=== PATIENT | male | born 1960 | race Caucasian/White ===

== ENCOUNTER 2020-03-16 07:07 | Outpatient (CLI) | payer OTHER, SELFPAY ==
[2020-03-16 08:41] LABS: Alanine Aminotransferase 26 U/L (4-50); Albumin Level 4.2 g/dL (3.5-5.1); Alkaline Phosphatase 74 U/L (38-126); Anion Gap 4 mmol/L (8-16); Aspartate Amino Transferase 25 U/L (17-59); Bilirubin,Total 0.6 mg/dL (0.2-1.3); Blood Urea Nitrogen 14 mg/dL (9-20); Calcium 9.2 mg/dL (8.4-10.2); Carbon Dioxide 29 mmol/L (22-30); Chloride 104 mmol/L (98-107); Cholesterol 163 mg/dL (0-200); Estimated Glomerular Filt Rate > 60; Glucose 123 mg/dL (75-110); HDL Direct 50 mg/dL; Potassium 4.8 mmol/L (3.4-5.0); Sodium 137 mmol/L (137-145); Triglycerides 142 mg/dL (<150)
[2020-03-16 08:52] LABS: LDL Cholesterol Direct 90 mg/dL
== END 2020-03-16 07:08 | disposition home or self-care (01) ==
PROVIDERS: PCP Emergency Medicine; Visit Provider Emergency Medicine
DX: E78.5 Hyperlipidemia, unspecified (principal); Z12.5 Encounter for screening for malignant neoplasm of prostate
CPT/HCPCS: 36415; 80053; 80061; 84153; G0103

== ENCOUNTER 2020-12-05 15:40 | Emergency (ER) | payer OTHER, SELFPAY ==
[2020-12-05 15:51] VITALS: BP 139/72; PULSE 67; RESP 16; TEMP 37.4; O2SAT 99
--- NOTE | 2020-12-05 16:09 | ED.URI ---
HPI - URI/Sore Throat General Chief Complaint: Wound/Laceration Stated Complaint: sore throat/swollen glands/knots on head/fatigue Time Seen by Provider: 12/05/20 16:09 Source: patient and RN notes reviewed Mode of arrival: ambulatory Limitations: no limitations History of Present Illness HPI Narrative: 60-year-old male presents with his girlfriend with complaints of a sore throat, nasal congestion, rhinorrhea and lesions to the back of his head. Patient states they all started approximately 5 days ago. Patient has not taken anything for his symptoms. States they were just getting annoying and he cannot wait 13 days to see his primary care provider. Girlfriend is requesting that we do labs, explained to her that we are a facility that we do not do labs any labs that need to be done will need to be done by primary care provider, she states that she is concerned for his chronic fatigue. Related Data Home Medications Medication Instructions Recorded Confirmed bupropion HCl 300 mg 24 hr tablet, 300 mg PO DAILY tablet 06/20/19 12/05/20 extended release sertraline 50 mg tablet 50 mg PO DAILY 06/20/19 12/05/20 Allergies Allergy/AdvReac Type Severity Reaction Status Date / Time No Known Allergies Allergy Unverified 12/05/20 15:52 Review of Systems Review of Systems: All systems reviewed & are unremarkable except as noted in HPI and below Constitutional: Constitutional: Reports no additional constitutional complaints, Denies chills and Denies fever(s) Eyes: Eyes: Reports no additional eye complaints, Denies change in vision and Denies photophobia ENT: Reports as per HPI, Reports nasal congestion and Reports sore throat Cardiovascular: Cardiovascular: Reports no additional cardiovascular complaints and Denies chest pain Respiratory: Respiratory: Reports no additional respiratory complaints, Denies cough and Denies dyspnea Gastrointestinal: Gastrointestinal: Reports no additional gastrointestinal complaints, Denies abdominal pain, Denies nausea and Denies vomiting Musculoskeletal: Musculoskeletal: Reports no additional musculoskeletal complaints, Denies back pain, Denies myalgias, Denies arthralgias, Denies joint swelling and Denies muscle cramps Integumentary/Breasts: Skin/Breast: Reports system reviewed and no additional complaints, except as docu and Denies rash Neurologic: Reports system reviewed and no additional complaints, except as documented, Denies vertigo, Denies dizziness, Denies syncope, Denies headache(s), Denies focal weakness and Denies numbness Psychiatric: Psychiatric: Reports no additional psychiatric complaints Endocrine: Endocrine: Reports no additional endocrine complaints, Denies fatigue and Denies polydipsia Allergic/Immunologic: Allergic/Immunologic: Reports no additional allergic/immunologic complaints [facility] Past Medical History Medical History (Updated 12/05/20 @ 16:23 by Sarah Kirby) HLD (hyperlipidemia) Family History Family History Sibling Patient's sister is in good health Father Acute myocardial infarction, Onset Age: 74 Patient's father is Social History Social History Smoking status: Never smoker Alcohol intake: current Exam Const: General: healthy appearing, no acute distress and alert Nutritional Appearance: well nourished Orientation/consciousness: patient oriented x3 Limitations: no limitations HENMT: Head: normal to inspection Ears: external ears normal, mastoids normal, no periauricular adenopathy, external ear abnormal and TM abnormal wth effusion serous bilateral and with fluid behind the TM bilateral; not erythematous General nose exam: Normal external nose present, Abnormal mucous membranes and turbinates present boggy; not erythematous and Nasal discharge present clear Face and sinus: normal facial exam, no ecchymosi
== END 2020-12-05 16:31 | disposition home or self-care (01) ==
PROVIDERS: Emergency Provider Nurse Practitioner; PCP Emergency Medicine
DX: B35.0 Tinea barbae and tinea capitis (principal); J06.9 Acute upper respiratory infection, unspecified; E78.5 Hyperlipidemia, unspecified
CPT/HCPCS: 99213; G0463

== ENCOUNTER 2021-04-21 13:39 | Outpatient (CLI) | payer OTHER, SELFPAY ==
[2021-04-21 14:45] LABS: Alanine Aminotransferase 26 U/L (4-50); Albumin Level 4.6 g/dL (3.5-5.1); Alkaline Phosphatase 87 U/L (38-126); Anion Gap 8 mmol/L (8-16); Aspartate Amino Transferase 26 U/L (17-59); Blood Urea Nitrogen 13 mg/dL (9-20); Calcium 9.3 mg/dL (8.4-10.2); Carbon Dioxide 26 mmol/L (22-30); Chloride 101 mmol/L (98-107); Cholesterol 175 mg/dL (0-200); Estimated Glomerular Filt Rate > 60; Glucose 106 mg/dL (65-110); HDL Direct 63 mg/dL; Potassium 4.1 mmol/L (3.4-5.0); Sodium 135 mmol/L (137-145); Triglycerides 85 mg/dL (<150)
[2021-04-21 14:47] LABS: LDL Cholesterol Direct 88 mg/dL
[2021-04-21 15:06] LABS: Prostate Specific Antigen 1.3 ng/mL (< OR = 4.0)
[2021-04-21 16:22] LABS: Bilirubin,Total 0.7 mg/dL (0.2-1.3)
== END 2021-04-21 13:40 | disposition home or self-care (01) ==
LOC: ANHLAB 13:41
PROVIDERS: PCP Emergency Medicine; Visit Provider Emergency Medicine
DX: E78.2 Mixed hyperlipidemia (principal); Z12.5 Encounter for screening for malignant neoplasm of prostate
CPT/HCPCS: 36415; 80053; 80061; 84153; G0103

== ENCOUNTER 2023-05-17 07:10 | Outpatient (CLI) | payer OTHER, SELFPAY ==
[2023-05-17 08:05] LABS: Alanine Aminotransferase 32 U/L (6-50); Albumin Level 4.4 g/dL (3.5-5.1); Alkaline Phosphatase 88 U/L (38-126); Anion Gap 5 mmol/L (8-16); Aspartate Amino Transferase 32 U/L (17-59); Bilirubin,Total 0.7 mg/dL (0.2-1.3); Blood Urea Nitrogen 9 mg/dL (9-20); Calcium 8.9 mg/dL (8.4-10.2); Carbon Dioxide 29 mmol/L (22-30); Chloride 101 mmol/L (98-107); Cholesterol 199 mg/dL (0-200); Estimated Glomerular Filt Rate > 60; Glucose 113 mg/dL (65-110); HDL Direct 61 mg/dL; Sodium 135 mmol/L (137-145); Triglycerides 93 mg/dL (<150)
[2023-05-17 08:17] LABS: LDL Cholesterol Direct 110 mg/dL
[2023-05-17 09:32] LABS: Vitamin D 25 Hydroxy 26.5 ng/mL
== END 2023-05-17 07:11 | disposition home or self-care (01) ==
LOC: ANHLAB 07:13
PROVIDERS: PCP Emergency Medicine; Visit Provider Emergency Medicine
DX: E55.9 Vitamin D deficiency, unspecified (principal); E78.5 Hyperlipidemia, unspecified
CPT/HCPCS: 36415; 80053; 80061; 82306

== ENCOUNTER 2023-06-18 11:34 | Inpatient (IN) | payer OTHER, SELFPAY ==
[2023-06-18] VITALS (19 sets, daily range): BP systolic 96–146; BP diastolic 64–87; PULSE 55–82; RESP 13–22; TEMP 36.4–36.9; O2SAT 98–100; BMI 24.0
--- NOTE | 2023-06-18 | ECHO_ITS ---
Patient Info Name: Alber Hinojosa Age: 62 years : 1960 Gender: Male Ht: 71 in Wt: 180 lbs BSA: 2.03 m2 HR: 54 bpm BP: 106 / 76 mmHg Heart Rhythm: Sinus Rhythm, Bradycardia Technical Quality: Fair Exam Date: 06/18/2023 3:04 PM Exam Location: Echo Lab Patient Status: Inpatient Admit Date: 06/18/2023 Staff Ordering Physician: Kimani Casanova [facility] Attending Provider: Kimani Casanova MD ([place]) Referring Physician: Edilberto ARMAS; Exam Type: CA echo dop color flow w con Study Info Indications I21.3 - ST elevation (STEMI) myocardial infarction of unspecified site Complete two-dimensional, color flow and Doppler transthoracic echocardiogram is performed with contrast to opacify the left ventricle and to improve the deliniation of the left ventricle endocardial borders. Contrast/Agitated Saline Contrast/Ag. Saline: Definity Amount: 2.00 ml Existing IV Access: Yes IV Access Condition: patent with no signs of infiltration Summary 1. Left ventricular chamber dimension is normal. 2. Left ventricular systolic function is normal, estimated at 60-65%. 3. There is hypokinesis of the basal and mid inferoseptum. There is hypokinesis of the inferior wall. 4. The left ventricular diastolic function is grade I diastolic dysfunction. 5. Right ventricular systolic function is reduced. 6. Right atrial chamber dimension is mildly enlarged. 7. There is mild mitral valve regurgitation. 8. There is mild tricuspid valve regurgitation. Left Ventricle There is hypokinesis of the basal and mid inferoseptum. There is hypokinesis of the inferior wall. Left ventricular chamber dimension is normal. Left ventricular systolic function is normal, estimated at 60-65%. There is no increased left ventricular wall thickness. The left ventricular diastolic function is grade I diastolic dysfunction. Right Ventricle Right ventricular chamber dimension is normal. Right ventricular systolic function is reduced. Left Atria Left atrial chamber dimension is normal. Right Atria Right atrial chamber dimension is mildly enlarged. Atrial Septum Intact interatrial septum visualized by color flow imaging. Aortic Valve The aortic valve is probable trileaflet. There is no aortic valve stenosis. There is no aortic valve regurgitation. Pulmonic Valve The pulmonic valve is not well visualized. Mitral Valve There is mild mitral valve regurgitation. Tricuspid Valve There is mild tricuspid valve regurgitation. Pericardium/Pleural There is no pericardial effusion. Inferior Vena Cava Normal inferior vena cava with >50% collapse upon inspiration consistent with normal right atrial pressure, 3 mmHg. Aorta The aortic root size at the sinus of Valsalva is normal. Left Ventricular Outflow Tract Name Value Normal LVOT 2D LVOT Diameter 2.13 cm LVOT Doppler LVOT Peak Gradient 5 mmHg LVOT Mean Gradient 2 mmHg LVOT VTI 20.57 cm LVOT VTI/AV VTI Ratio 0.75 LVOT Stroke Volume 73.13 ml LVOT CO 4.13 l/min
--- NOTE | 2023-06-18 11:41 | ECG_ITS ---
Measurements Intervals [place] Rate: 69 P: 64 VT: 188 QRS: -54 QRSD: 147 T: -10 QT: 408 QTc: 438 Interpretive Statements SINUS RHYTHM POSSIBLE LEFT ATRIAL ENLARGEMENT [-0.1mV P WAVE IN V1/V2] RIGHT BUNDLE BRANCH BLOCK [120+ ms QRS DURATION, UPRIGHT V1, 40+ ms S IN I/aVL/V4/V5/V6] LEFT ANTERIOR FASCICULAR BLOCK [QRS AXIS <= -45, QR IN I, RS IN II] INFERIOR MYOCARDIAL INFARCTION , POSSIBLY ACUTE [40+ ms Q WAVE AND/OR ST/T ABNORMALITY IN II/aVF] ACUTE DC NO PREVIOUS ECG AVAILABLE FOR COMPARISON Electronically Signed On 06-18-2023 16:38:12 HOT DIPPER by Kimani Casanova M.D.
[2023-06-18 12:02] LABS: Basophils Percent Auto 0.2 % (0.2-1.2); Eosinophils Percent Auto 0.2 % (0-4.4); Hematocrit 50.1 % (42.0-52.0); Immature Granulocyte Absolute 0.07 K/mm3 (0.00-0.031); Immature Granulocyte Percent A 0.4 % (0-0.5); Lymphocytes Absolute Auto 2.53 K/mm3 (0.9-3.2); Lymphocytes Percent Auto 15.1 % (18.3-44.2); Mean Corpuscular HGB Conc 31.9 g/dl (32-36); Mean Platelet Volume 9.1 fl (7.4-10.4); Monocytes Percent Auto 6.1 % (2.6-8.5); Neutrophils Absolute Auto 13.1 K/mm3 (1.3-6.7); Platelet Count Result 303 k/mm3 (150-375); Red Blood Count 5.33 M/mm3 (4.6-6.20); Red Cell Distribution Width 12.1 % (11.5-14.5); White Blood Count 16.7 K/mm3 (4.5-10.0)
--- NOTE | 2023-06-18 12:08 | PC.NURSE ---
1201 Casanova 1203 - Overhead 1204 Gaud[address] 1205 [facility] ETA 16min
--- NOTE | 2023-06-18 12:08 | ED.GENADULT ---
HPI - General Adult General Chief complaint: Upper Respiratory Infection Stated complaint: chest pain-SOB Time Seen by Provider: 06/18/23 11:44 History of Present Illness HPI narrative: [age] year old male presenting to the emergency department for evaluation of upper respiratory symptoms and chest pain this been ongoing for the past 2 weeks. Patient reports that the chest pain did acutely worsened last night. Patient reports he is still having chest pain radiating from substernal chest into his neck. Patient has no prior history of [place]. Patient is not on any blood thinners. Patient does have history of hypertension high cholesterol and is a smoker. Related Data Home Medications Medication Instructions Recorded Confirmed atorvastatin 40 mg tablet 40 mg PO DAILY 06/18/23 06/18/23 lisinopril 10 mg tablet 10 mg PO DAILY 06/18/23 06/18/23 Allergies Allergy/AdvReac Type Severity Reaction Status Date / Time No Known Allergies Allergy Verified 06/18/23 11:34 Review of Systems Review of Systems: All systems reviewed & are unremarkable except as noted in HPI and below PMFSH Past Medical History Medical History (Updated 06/18/23 @ 13:58 by Kimani Casanova MD) HLD (hyperlipidemia) Family History Family History (Updated 06/18/23 @ 15:18 by Patrick Malagon RN) Sibling Patient's sister is in good health Father Acute myocardial infarction, Onset Age: 74 Patient's father is Mother Dementia Social History Social History Smoking packs per day: 1 Smoking cigarettes per day: 20.0 Years smoked: 37 Smoking pack-years: 37.00 Smoking status: Current every day smoker Tobacco type: cigarettes Alcohol intake: current Drinks per week: 42 Substance use: current Substance use type: marijuana Last use: 06/17/23 Do You Feel Safe in your Home?: Yes Lack of Transportation: No Lack of Food: Never True Current Housing: I Have Housing Concerned About Future Housing: No Difficulty Paying Gas/Electric Bills: No Difficulty Paying for Meds: No Currently Unemployed: No Education: High School Diploma/GED Difficulty w/ Childcare or Family Care: No Spiritual care concerns: No Exam Narrative: APPEARANCE: Well appearing, no pain, no distress, well-nourished. HEAD: normocephalic, atraumatic. EYES: PERRLA/EOMI, conjunctivae clear. NOSE: Normal no drainage EARS:TMS clear with good light reflex. THROAT: Pharynx clear, no exudate. NECK: Supple. No adenopathy, no masses. RESPIRATORY: Airway patent, respirations nonlabored. Clear to auscultation bilaterally, no rales, rhonchi, wheezing. CARDIOVASCULAR: Regular rate and rhythm without murmurs rubs or gallops. No reproducible chest wall tenderness to palpation ABDOMINAL: Soft, nontender, nondistended, normal bowel sounds MUSCULOSKELETAL: Moves all extremities. Strength/ROM intact, No edema, No calf tenderness. NEURO: Alert. Cranial nerves II through XII intact. Grossly intact SKIN: Warm, dry. Normal Color Course Course Emergency Course: [age] old male presenting ED for evaluation of a press breath symptoms and chest pain. EKG did have changes were concerning for a recent heart attack. Case was discussed with Dr. Casanova and patient will be taken to the rn cardiac cath. Baseline labs were ordered, patient was treated with aspirin and Brilinta. Patient and family were updated on the results of the EKG and plan for transfer to the rn cardiac cath. All questions concerns were addressed patient was well-appearing and stable at time of transfer. Vital Signs Vital signs: Vital Signs Temperature 98.2 F 06/18/23 11:37 Pulse Rate 82 06/18/23 11:37 Respiratory Rate 20 06/18/23 11:37 Blood Pressure 146/87 H 06/18/23 11:37 Pulse Oximetry 100 06/18/23 11:37 Oxygen Delivery Room Air 06/18/23 11:37 Temperature 98.4 F 06/18/23 15:53 Pulse Rate 55 L
[2023-06-18] MEDS: ASPIRIN 81 MG CHEWABLE TABLET 324 MG PO (12:14)
[2023-06-18] MEDS: TICAGRELOR 90 MG TABLET 180 MG PO (12:14)
--- NOTE | 2023-06-18 12:14 | PC.NURSE ---
1215 Pt left in care of electrical laboratory technician
--- NOTE | 2023-06-18 12:17 | WPDMODSED ---
Moderate Sedation Note-Pt Data Patient Data Diagnosis: STEMI Present Complaint: STEMI Procedure to be performed/Plan: Primary PCI Allergies Allergy/AdvReac Type Severity Reaction Status Date / Time No Known Allergies Allergy Verified 06/18/23 11:34 Home Medications Medication Instructions Recorded Confirmed Type atorvastatin 40 mg tablet See Rx Instructions .Route 01/11/23 06/02/23 Rx .COMPLEX #90 tabs lisinopril 10 mg tablet See Rx Instructions .Route 04/19/23 06/02/23 Rx .COMPLEX #90 tabs bupropion HCl 300 mg 24 hr tablet, 300 mg PO DAILY #90 tabs 05/14/23 06/02/23 Rx extended release sertraline 100 mg tablet 100 mg PO DAILY #90 tabs 05/14/23 06/02/23 Rx Current Medications: Active Medications Perflutren Lipid Microsphere (Perflutren Lipid Microspheres 1.5 Ml Vial Diluted To 10 Ml Total Volume) 0 ml IV PUSH ONCE PRN; Protocol PRN Reason: adequate visualization Stop: 06/21/23 12:16 Sedation/Anesthesia: No previous sedation/anesthesia problems (including family history). PMFSH Past Medical History Medical History HLD (hyperlipidemia) Family History Family History Sibling Patient's sister is in good health Father Acute myocardial infarction, Onset Age: 74 Patient's father is Social History Social History Smoking status: Never smoker Alcohol intake: current Lack of Transportation: No Lack of Food: Never True Current Housing: I Have Housing Concerned About Future Housing: No Difficulty Paying Gas/Electric Bills: No Difficulty Paying for Meds: No Currently Unemployed: No Education: High School Diploma/GED Difficulty w/ Childcare or Family Care: No Mod Sed Physical Exam Physical Exam Pre Procedural Exam: Normal: Appearance, Heart Rate, Heart Rhythm, Neuro Exam, Extremities and Skin Hours since solid foods: 0 Hours since liquid intake: 0 Mallampati Classification: class III Internal Medicine - PN: Obj Da Vital Signs Vital Signs: Vital Signs - 24 hr 06/18/23 11:37 06/18/23 11:50 Temperature 36.8 C Pulse Rate 82 Respiratory Rate 20 Blood Pressure 146/87 H Pulse Oximetry 100 100 Oxygen Delivery Room Air Room Air Meds/Results Medications: Active Medications Generic Name Dose Route Start Last Admin Trade Name Freq PRN Reason Stop Dose Admin Perflutren Lipid Microsphere 0 ml 06/18/23 12:16 Perflutren Lipid Microspheres 1.5 Ml Vial Diluted To 10 Ml Total Volume IV PUSH 06/21/23 12:16 ONCE PRN adequate visualization Protocol Labs 06/18/23 11:49 06/18/23 11:49 Labs: Laboratory Results - last 24 hr 06/18/23 11:49 WBC 16.7 H RBC 5.33 Hgb 16.0 Hct 50.1 MCV 94.0 MCH 30.0 MCHC 31.9 L RDW 12.1 Plt Count 303 MPV 9.1 Immature Gran % (Auto) 0.4 Neut % (Auto) 78.0 H Lymph % (Auto) 15.1 L Donley % (Auto) 6.1 Eos % (Auto) 0.2 Baso % (Auto) 0.2 Lymph # (Auto) 2.53 Donley # (Auto) 1.0 H Eos # (Auto) 0.0 Baso # (Auto) 0.0 Abs Immat Gran (auto) 0.07 H Absolute Neuts (auto) 13.1 H Absolute Nucleated RBC 0.0 Nucleated RBC % 0.0 ASA Classification/Sedation ASA Classification/Sedation ASA Class: IV Emergent: Yes Risks: Risks, benefits and alternatives explained and patient/family accepted plan for sedation. Patient re-evaluated immediately prior to sedation.
[2023-06-18 12:24] LABS: Alanine Aminotransferase 45 U/L (6-50); Albumin Level 4.6 g/dL (3.5-5.1); Alkaline Phosphatase 93 U/L (38-126); Anion Gap 8 mmol/L (8-16); Aspartate Amino Transferase 267 U/L (17-59); Bilirubin,Total 0.7 mg/dL (0.2-1.3); Blood Urea Nitrogen 12 mg/dL (9-20); Carbon Dioxide 27 mmol/L (22-30); Chloride 98 mmol/L (98-107); Estimated CRCL calculation 113 ml/min; Estimated Glomerular Filt Rate > 60; Glucose 144 mg/dL (65-110); Lipase 43 U/L (23-300); Sodium 133 mmol/L (137-145)
[2023-06-18 12:25] LABS: Prothrombin Time 13.1 Seconds (11.1-14.7)
[2023-06-18 12:26] LABS: Partial Thromboplastin Time 31.4 SECONDS (22.3-36.8)
[2023-06-18 12:40] LABS: Influenza A QL RT-PCR Negative (Negative); Influenza B QL RT-PCR Negative (Negative); RSV RNA, RT-PCR Negative (Negative); SARS-CoV-2 RNA PCR Negative (Negative)
--- NOTE | 2023-06-18 13:52 | PM.IMHP ---
H&P: HPI History of Present Illness Date/Time: 06/18/23 13:52 Chief Complaint: Chest pain Narrative: Patient is a 62 year old male with hypertension, hyperlipidemia, tobacco dependence who presented to [place] ER with chest pain. Patient reports he first had some brief chest pain on Wednesday, with recurrence on Wednesday. However, last night starting at 8PM, he had severe chest pain that was constant. Has been ongoing all night and up to presentation. EKG upon arrival to ED shows sinus rhythm, right bundle branch block, inferior ST elevations with Q waves already in the inferior leads. Patient having ongoing chest pain in the ER. STEMI activated. Review of Systems Review of Systems: All systems reviewed & are unremarkable except as noted in HPI and below (HPI) PMFSH Past Medical History Medical History (Updated 06/18/23 @ 13:58 by Kimani Casanova MD) HLD (hyperlipidemia) Family History Family History Sibling Patient's sister is in good health Father Acute myocardial infarction, Onset Age: 74 Patient's father is Social History Social History Smoking status: Never smoker Alcohol intake: current Lack of Transportation: No Lack of Food: Never True Current Housing: I Have Housing Concerned About Future Housing: No Difficulty Paying Gas/Electric Bills: No Difficulty Paying for Meds: No Currently Unemployed: No Education: High School Diploma/GED Difficulty w/ Childcare or Family Care: No Meds Home Medications and Allergies Home Medications Medication Instructions Recorded Confirmed Type atorvastatin 40 mg tablet See Rx Instructions .Route 01/11/23 06/02/23 Rx .COMPLEX #90 tabs lisinopril 10 mg tablet See Rx Instructions .Route 04/19/23 06/02/23 Rx .COMPLEX #90 tabs bupropion HCl 300 mg 24 hr tablet, 300 mg PO DAILY #90 tabs 05/14/23 06/02/23 Rx extended release sertraline 100 mg tablet 100 mg PO DAILY #90 tabs 05/14/23 06/02/23 Rx Allergies Allergy/AdvReac Type Severity Reaction Status Date / Time No Known Allergies Allergy Verified 06/18/23 11:34 Vital Signs Vital Signs - 24 hr 06/18/23 11:37 06/18/23 11:50 Temperature 36.8 C Pulse Rate 82 Respiratory Rate 20 Blood Pressure 146/87 H Pulse Oximetry 100 100 Oxygen Delivery Room Air Room Air Exam Const: General: no acute distress HENMT: Mouth: Yes dry mucous membranes Eyes: General: appearance normal, both eyes and all related structures Sclera: sclerae normal Resp: Effort & Inspection: normal respiratory effort Cardio: Rate: regular rate Rhythm: regular rhythm Skin: General skin exam: normal color Neuro: Speech: normal speech Psych: Mental Status: mental status grossly normal Affect: normal affect H&P: Results Labs Labs: Short CBC 06/18/23 Range/Units 11:49 WBC 16.7 H (4.5-10.0) K/mm3 Hgb 16.0 (14.0-18.0) g/dL Hct 50.1 (42.0-52.0) % Plt Count 303 (150-375) k/mm3 BMP 06/18/23 11:49 Sodium 133 L Potassium 4.0 Chloride 98 Carbon Dioxide 27 BUN 12 Creatinine 0.60 L Glucose 144 H Calcium 9.0 Cardiac Enzymes 06/18/23 Range/Units 11:49 Troponin I 22.700 H* (0.000-0.034) ng/mL Liver Function 06/18/23 Range/Units 11:49 Total Bilirubin 0.7 (0.2-1.3) mg/dL AST 267 H (17-59) U/L ALT 45 (6-50) U/L Alkaline Phosphatase 93 (38-126) U/L Albumin 4.6 (3.5-5.1) g/dL Assessment and Plan Assessment and plan (1) STEMI (ST elevation myocardial infarction): Code(s): I21.3 - ST elevation (STEMI) myocardial infarction of unspecified site Status: Acute Assessment and Plan: This is a late presentation inferior STEMI. Cardiac catheterization showed complete occlusion of the proximal RCA, s/p successful primary PCI with BLAYNE x 2 in the proximal-mid RCA. Noted to have reperfus
--- NOTE | 2023-06-18 14:02 | WPDCARDPROC ---
Cardiac Cath Procedure Note Date of procedure:: 06/18/23 Performing physician:: CATHETERIZATION LABORATORY REPORT Procedure Date: 06/18/2023 Net Web Application Developer: Kimani Casanova M.D., [facility]? Referring Physician: Feliciano Joya M.D. ([facility]) ? Anesthesia: Versed and Fentanyl were ordered and given in my presence at 12:27, procedure ended at 13:40. Supervision of nurse monitored moderate sedation with Versed and Fentanyl was provided for 73 minutes. Total of Versed 1mg and Fentanyl 25mcg were administered by the Jr. Java Developer RN Socorro Rodriguez. Pre-op Diagnosis: Inferior STEMI Post-op Diagnosis: 1. Complete occlusion of the proximal RCA, s/p successful primary PCI with BLAYNE x 2 in the proximal-mid RCA. 2. The LAD just after the ostium has a significant 70% stenosis. 3. Left ventricular end-diastolic pressure of 6mmHg Procedure(s): 1. Moderate sedation 2. Ultrasound-guided access of the right common femoral artery 3. Coronary angiography 4. Left heart cath 5. PCI of the RCA with BLAYNE x 2 6. IVUS of the RCA 7. Angioseal closure of the right common femoral artery Access Site: Right common femoral artery (Radial access not pursued as we are out of TR bands) Brief History and Clinical Indications: Patient is a 62 year old male with hypertension, hyperlipidemia, tobacco dependence who is referred for emergent cardiac cath for inferior STEMI. All risks, benefits and alternatives to left heart catheterization with or without percutaneous coronary intervention was discussed at length with the patient. Risk of complications including but not limited to bleeding, infection, arrhythmia, stroke, worsening kidney function, blood loss, groin hematoma, limb loss, emergency coronary artery bypass grafting, and even were discussed with the patient and all questions were answered. The patient understood and wished to proceed. Time out called, patient name, date of , medical record number, allergies, procedure performed, identify Net Web Application Developer, patient and staff member concurred with accurate data, procedure carried on. Findings: LEFT HEART CATHETERIZATION FINDINGS: 1. Left main: The left main coronary artery is widely patent without any significant obstructive disease. 2. Left anterior descending: Just after the ostium, the LAD has a significant 70% stenosis. Remainder of the LAD has mild diffuse disease. 3. Left circumflex: The left circumflex artery and the main marginal branches have luminal irregularities without any significant obstructive angiographic disease. 4. Right coronary artery: The RCA is the dominant vessel. The RCA is completely occluded in its proximal portion. There are left to right collaterals supplying the RCA territory. 5. Left ventricle: A. End-diastolic pressure 6mmHg. B. LV gram deferred. C. No significant gradient across aortic valve on catheter pullback. Description of Procedure and PCI: Informed consent signed and placed in the chart. Patient transferred to veterinary laboratory diagnostician room. Prepped and draped in usual sterile fashion. 2% lidocaine in right groin area. Micropuncture needle used to access right common femoral artery with Seldinger technique under fluoroscopic and ultrasound guidance. J wire advanced, micropuncture cannula placed. Right iliofemoral angiogram performed, access confirmed and micropuncture cannula exchanged for 6-FR sheath. 5F FL 4 diagnostic catheter engaged Left Main Coronary Artery. Multiple orthogonal angiogram obtained and reviewed Angiomax was used for anticoagulation. 6F FR 4 guide catheter was used to intubate the RCA. 0.014 Deans coronary wire was passed in to the distal RCA. The lesion was pre-dilated with a 2.5mm x 15mm balloon inflated to high GEN. Flow re-established to the distal RCA. Significant calcific lesion noted in the proximal-mid RCA. IVUS catheter advanced distal to the lesion. IVUS showed significant calcium, reference measurements obtained. While removing the IV
--- NOTE | 2023-06-18 14:21 | WPDCNINT ---
Assessment and Plan Assessment and plan (1) STEMI (ST elevation myocardial infarction): Code(s): I21.3 - ST elevation (STEMI) myocardial infarction of unspecified site Status: Acute Assessment and Plan: Patient presented the ED on 06/18 with complaints of intermittent chest pain and shortness of breath since 06/15. Chest pain was substernal, radiating to his neck along with shortness of breath, diaphoresis but no nausea vomiting. In the ER EKG showed inferior ST elevation NM, Q-waves, right bundle-branch block -patient was taken to the shift lab technician, status post PTCA/PCI stent x2 to proximal-mid RCA, patient did have some reperfusion arrhythmia and was given amiodarone -continue aspirin, ticagrelor, high-intensity statin (2) HLD (hyperlipidemia): Qualifiers: Hyperlipidemia type: mixed hyperlipidemia Qualified Code(s): E78.2 - Mixed hyperlipidemia Code(s): E78.5 - Hyperlipidemia, unspecified Status: Acute Assessment and Plan: Continue high-intensity statin (3) Hypertension: Code(s): I10 - Essential (primary) hypertension Status: Acute Assessment and Plan: Blood pressures have been borderline, will hold antihypertensives for now (4) Tobacco dependence: Code(s): F17.200 - Nicotine dependence, unspecified, uncomplicated Status: Acute Assessment and Plan: Patient states that he has quit smoking the time he arrived at the hospital on this admission (5) Depression: Qualifiers: Depression Type: major depressive disorder Major depression recurrence: recurrent Active/Remission status: currently active Major depression episode severity: mild Qualified Code(s): F33.0 - Major depressive disorder, recurrent, mild Code(s): F32.9 - Major depressive disorder, single episode, unspecified Status: Acute Assessment and Plan: Patient does take bupropion, sertraline for his depression and anxiety Plan DVT prophylaxis: Status post cardiac catheterization Stress ulcer prophylaxis: Not indicated Nutrition: Heart healthy diet Code Status: Full code Critical Care Time Spent: [address] Casanova, physician internist Due to a high probability of clinically significant, life threatening deterioration, the patient required my highest level of preparedness to intervene emergently and I personally spent this critical care time directly and personally managing the patient. This critical care time included obtaining a history; examining the patient; pulse oximetry; ordering and review of studies; arranging urgent treatment with development of a management plan; evaluation of patient's response to treatment; frequent reassessment; and discussions with other providers. It was exclusive of separately billable procedures and treating other patients and teaching time. Please see Assessment and Plan section and the rest of the note for further information on patient assessment and treatment This dictation may have been done utilizing a voice recognition system. Attempts have been made to correct errors. However, there may be uncorrected grammatical, spelling, and recognitions errors present. Disability Advocate Consult Note Consult date: 06/18/23 Reason for consult: ST-elevation NM in the inferior leads status post PTCA/PCI stent x2 to proximal-mid RCA, PDA patient did have some reperfusion arrhythmia and was given amiodarone HPI: Alber Lubna Hinojosa Jr. is a 62 year old male with past medical history of hypertension, hyperlipidemia, tobacco dependence presented the ED on 06/18/2023 with complains of chest pain and shortness of breath that started on 06/15, he has been experiencing intermittent chest pain radiating from substernal to his neck. EKG in the ER showed ST-elevations inferiorly and along with Q-waves, right bundle branch block. Code STEMI was alerted and patient was taken to the shift lab technician, status post PTCA/PCI stent x2 to proximal-mid RCAmicki
--- NOTE | 2023-06-18 14:37 | ADMGEN ---
This patient, Alber Hinojosa JrNathan, was admitted to Intensive Care Unit-1. Patient/family oriented to hospital policies and general routines including ID bracelet, bed and alarms, visiting hours, pain management, procedures, bathroom and other care routines, personal items, smoking policy, room service/diet, and visiting hours. Information on how to activate the Rapid Response Team has been discussed. Patient/Family are encouraged to report perceived risks to care and to ask questions if they do not understand what they are told or what they should do.
[2023-06-18 14:55] LABS: Cholesterol 150 mg/dL (0-200); HDL Direct 51 mg/dL; Triglycerides 87 mg/dL (<150)
[2023-06-18 15:06] LABS: LDL Cholesterol Direct 74 mg/dL
[2023-06-18 15:21] LABS: Hemoglobin A1C 5.7 % (<5.7)
[2023-06-18] MEDS: ATORVASTATIN 40 MG TABLET 80 MG PO (15:25)
[2023-06-18] MEDS: SODIUM CHLORIDE 0.9% IV 1,000 ML 125 ML IV CONT (15:25)
--- NOTE | 2023-06-18 15:44 | ECG_ITS ---
Measurements Intervals [place] Rate: 54 P: 66 NC: 182 QRS: -54 QRSD: 142 T: 20 QT: 430 QTc: 411 Interpretive Statements SINUS BRADYCARDIA RIGHT BUNDLE BRANCH BLOCK [120+ ms QRS DURATION, UPRIGHT V1, 40+ ms S IN I/aVL/V4/V5/V6] INFERIOR MYOCARDIAL INFARCTION [40+ ms Q WAVE AND/OR ST/T ABNORMALITY IN II/aVF], PROBABLY RECENT COMPARED TO ECG 06/18/2023 11:49:47 SINUS BRADYCARDIA NOW PRESENT Electronically Signed On 06-18-2023 16:44:15 PRODUCTION CONTROL COORDINATING CLERK by Kimani Casanova M.D.
[2023-06-18] MEDS: PERFLUTREN LIPID MICROSPHERES 1.5 ML VIAL DILUTED TO 10 ML TOTAL VOLUME IV PUSH (15:45)
[2023-06-18 18:25] LABS: Troponin I > 80.000 ng/mL (0.000-0.034)
[2023-06-18] MEDS: TICAGRELOR 90 MG TABLET PO (20:33)
[2023-06-19] VITALS (10 sets, daily range): BP systolic 86–116; BP diastolic 67–79; PULSE 55–62; RESP 13–19; TEMP 36; O2SAT 97–100
[2023-06-19 04:07] LABS: Basophils Percent Auto 0.2 % (0.2-1.2); Eosinophils Absolute Auto 0.1 K/mm3 (0-0.3); Eosinophils Percent Auto 0.6 % (0-4.4); Hematocrit 44.2 % (42.0-52.0); Hemoglobin 14.6 g/dL (14.0-18.0); Immature Granulocyte Absolute 0.06 K/mm3 (0.00-0.031); Immature Granulocyte Percent A 0.5 % (0-0.5); Lymphocytes Absolute Auto 2.56 K/mm3 (0.9-3.2); Lymphocytes Percent Auto 20.2 % (18.3-44.2); Mean Corpuscular Hemoglobin 30.9 pg (26-34); Mean Corpuscular Volume 93.4 fl (80-100); Mean Platelet Volume 9.5 fl (7.4-10.4); Monocytes Absolute Auto 1.1 K/mm3 (0.1-0.6); Monocytes Percent Auto 8.6 % (2.6-8.5); Neutrophils Absolute Auto 8.9 K/mm3 (1.3-6.7); Neutrophils Percent Auto 69.9 % (45.5-73.1); Platelet Count Result 251 k/mm3 (150-375); Red Blood Count 4.73 M/mm3 (4.6-6.20); Red Cell Distribution Width 12.1 % (11.5-14.5); White Blood Count 12.7 K/mm3 (4.5-10.0)
[2023-06-19 04:19] LABS: Alanine Aminotransferase 70 U/L (6-50); Albumin Level 3.9 g/dL (3.5-5.1); Alkaline Phosphatase 82 U/L (38-126); Anion Gap 3 mmol/L (8-16); Aspartate Amino Transferase 417 U/L (17-59); Bilirubin,Total 0.9 mg/dL (0.2-1.3); Blood Urea Nitrogen 12 mg/dL (9-20); Calcium 8.6 mg/dL (8.4-10.2); Carbon Dioxide 29 mmol/L (22-30); Chloride 101 mmol/L (98-107); Estimated CRCL calculation 98 ml/min; Estimated Glomerular Filt Rate > 60; Glucose 107 mg/dL (65-110); Magnesium 2.2 mg/dL (1.6-2.3); Phosphorus 3.4 mg/dL (2.5-4.5); Potassium 4.5 mmol/L (3.4-5.0); Sodium 133 mmol/L (137-145)
[2023-06-19] MEDS: ASPIRIN 81 MG ENTERIC TABLET PO (09:29)
[2023-06-19] MEDS: TICAGRELOR 90 MG TABLET PO (09:29)
[2023-06-19] MEDS: ATORVASTATIN 40 MG TABLET 80 MG PO (09:29)
[2023-06-19] MEDS: SERTRALINE HCL 50 MG TABLET 100 MG PO (09:41)
[2023-06-19] MEDS: buPROPion HCL XL (24 HR) 150 MG TABCR 300 MG PO (09:41)
--- NOTE | 2023-06-19 10:41 | PC.NURSE ---
Dr. Casanova to bedside.
--- NOTE | 2023-06-19 10:46 | WPDINTPN ---
Progress Note: A&P Assessment and Plan (1) STEMI (ST elevation myocardial infarction): Code(s): I21.3 - ST elevation (STEMI) myocardial infarction of unspecified site Status: Acute Assessment and Plan: Patient presented the ED on 06/18 with complaints of intermittent chest pain and shortness of breath since 06/15. Chest pain was substernal, radiating to his neck along with shortness of breath, diaphoresis but no nausea vomiting. In the ER EKG showed inferior ST elevation LA, Q-waves, right bundle-branch block -patient was taken to the labor standards director, status post PTCA/PCI stent x2 to proximal-mid RCA, patient did have some reperfusion arrhythmia and was given amiodarone -continue aspirin, ticagrelor, high-intensity statin 06/18/2023: Echocardiogram Summary ? 1. Left ventricular chamber dimension is normal. ? 2. Left ventricular systolic function is normal, estimated at 60-65%. ? 3. There is hypokinesis of the basal and mid inferoseptum. There is hypokinesis of the inferior wall. ? 4. The left ventricular diastolic function is grade I diastolic dysfunction. ? 5. Right ventricular systolic function is reduced. ? 6. Right atrial chamber dimension is mildly enlarged. ? 7. There is mild mitral valve regurgitation. ? 8. There is mild tricuspid valve regurgitation. (2) HLD (hyperlipidemia): Qualifiers: Hyperlipidemia type: mixed hyperlipidemia Qualified Code(s): E78.2 - Mixed hyperlipidemia Code(s): E78.5 - Hyperlipidemia, unspecified Status: Acute Assessment and Plan: Continue high-intensity statin (3) Hypertension: Code(s): I10 - Essential (primary) hypertension Status: Acute Assessment and Plan: Blood pressures have been borderline, will hold antihypertensives for now (4) Tobacco dependence: Code(s): F17.200 - Nicotine dependence, unspecified, uncomplicated Status: Acute Assessment and Plan: Patient states that he has quit smoking the time he arrived at the hospital on this admission (5) Depression: Qualifiers: Depression Type: major depressive disorder Major depression recurrence: recurrent Active/Remission status: currently active Major depression episode severity: mild Qualified Code(s): F33.0 - Major depressive disorder, recurrent, mild Code(s): F32.9 - Major depressive disorder, single episode, unspecified Status: Acute Assessment and Plan: Patient does take bupropion, sertraline for his depression and anxiety Plan DVT prophylaxis: Status post cardiac catheterization Stress ulcer prophylaxis: Not indicated Nutrition: Heart healthy diet Code Status: Full code Critical Care Time Spent: [address] Casanova, supervisor travel trailer Due to a high probability of clinically significant, life threatening deterioration, the patient required my highest level of preparedness to intervene emergently and I personally spent this critical care time directly and personally managing the patient. This critical care time included obtaining a history; examining the patient; pulse oximetry; ordering and review of studies; arranging urgent treatment with development of a management plan; evaluation of patient's response to treatment; frequent reassessment; and discussions with other providers. It was exclusive of separately billable procedures and treating other patients and teaching time. Please see Assessment and Plan section and the rest of the note for further information on patient assessment and treatment This dictation may have been done utilizing a voice recognition system. Attempts have been made to correct errors. However, there may be uncorrected grammatical, spelling, and recognitions errors present. Subjective Date/time seen: 06/19/23 10:46 Interval history: Reason for consult: ST-elevation LA in the inferior leads status post PTCA/PCI stent x2 to proximal-mid RCA, PDA patient did have some reperfusion ar
--- NOTE | 2023-06-19 10:51 | PM.DS ---
DS: Admitting Diagnosis Discharge Date 06/19/2023 Admitting Diagnosis Inferior STEMI DS: Discharge Diagnosis Discharge Diagnosis (1) STEMI (ST elevation myocardial infarction): Code(s): I21.3 - ST elevation (STEMI) myocardial infarction of unspecified site Status: Acute (2) Hypertension: Code(s): I10 - Essential (primary) hypertension Status: Acute (3) HLD (hyperlipidemia): Qualifiers: Hyperlipidemia type: mixed hyperlipidemia Qualified Code(s): E78.2 - Mixed hyperlipidemia Code(s): E78.5 - Hyperlipidemia, unspecified Status: Acute (4) Tobacco dependence: Code(s): F17.200 - Nicotine dependence, unspecified, uncomplicated Status: Acute DS: Summary Hospital Course Hospital Course: Inferior STEMI: Late presentation inferior STEMI. Cardiac catheterization showed complete occlusion of the proximal RCA, s/p successful primary PCI with BLAYNE x 2 in the proximal-mid RCA. Noted to have reperfusion arrhythmia during case. Loaded with ASA 324mg x 1 in the ED. Continue with ASA 81mg once daily indefinitely. Loaded with Brilinta 180mg in the ED. Continue with Brilinta 90mg BID for at least 1 year. High-intensity statin. Echocardiogram with normal LVEF, hypokinesis of the inferior wall, hypokinesis of the basal and mid inferoseptum. RVSF reduced. Grade 1 diastolic dysfunction. No significant valvular disease. Patient did well after PCI with complete resolution of chest pain and no other symptoms. Has significant non-critical LAD disease, for which we will plan for outpatient staged intervention at some point. Not started on beta maurisio as heart rates in the 50s to 60s at baseline. Hypertension: Stable, did not require antihypertensive agent. Will stop his home Lisinopril as blood pressure in the 100s to 110s during hospitalization. Close outpatient follow up. Hyperlipidemia: Increased his Atorvastatin dose to 80mg. Tobacco dependence: Lengthy discussion with the patient regarding need for smoking. Will send him home with nicotine patches. Status at Discharge Functional status at discharge: independent ambulation Time Spent with Patient Time attestation: Total time spent providing and/or coordinating discharge services: Exam Const: General: comfortable and no acute distress Eyes: General: appearance normal, both eyes and all related structures Sclera: sclerae normal Resp: Effort & Inspection: normal respiratory effort Auscultation: clear to auscultation bilaterally Cardio: Rate: regular rate Rhythm: regular rhythm Heart sounds: no murmurs Skin: General skin exam: normal color Psych: Mental Status: mental status grossly normal Affect: normal affect DS: Data Data Completed and Pending Labs on day of discharge: Labs from last 24 hours 06/19/23 06/18/23 06/18/23 03:28 17:53 14:27 WBC 12.7 H RBC 4.73 Hgb 14.6 Hct 44.2 MCV 93.4 MCH 30.9 MCHC 33.0 RDW 12.1 Plt Count 251 MPV 9.5 Immature Gran % (Auto) 0.5 Neut % (Auto) 69.9 Lymph % (Auto) 20.2 Emmons % (Auto) 8.6 H Eos % (Auto) 0.6 Baso % (Auto) 0.2 Lymph # (Auto) 2.56 Emmons # (Auto) 1.1 H Eos # (Auto) 0.1 Baso # (Auto) 0.0 Abs Immat Gran (auto) 0.06 H Absolute Neuts (auto) 8.9 H Absolute Nucleated RBC 0.0 Nucleated RBC % 0.0 PT INR APTT Sodium 133 L Potassium 4.5 Chloride 101 Carbon Dioxide 29 Anion Gap 3 L BUN 12 Creatinine 0.70 Estim Creat Clear Calc 98 Estimated GFR > 60 Glucose 107 Hemoglobin A1c 5.7 Calcium 8.6 Phosphorus 3.4 Magnesium 2.2 Total Bilirubin 0.9 AST 417 H ALT 70 H Alkaline Phosphatase 82 Troponin I > 80.000 H* 70.800 H* D Total Protein 7.0 Albumin 3.9 Triglycerides 87 Cholesterol 150 LDL Cholesterol Direct 74 HDL Direct 51 Lipase TSH 2.510 Influenza A (RT-PCR) Influenza B (RT-PCR) RSV (RT-PCR)
--- NOTE | 2023-06-29 12:32 | IVDEFINITY ---
Prior to administration of IV Definity the patient was educated on the risks and benefits of the imaging enhancing agent including potential adverse side effects. The patient verbalized understanding. Allergies were verified. No exclusion criteria were identified and at least one of the following inclusion criteria were met: 1) physician request, 2) patient technically difficult to image (per the [place] [employer] Echocardi[employer] guidelines of two or more segments not discernable within the apical view), or 3) questionable left ventricular function. ?
== END 2023-06-19 11:46 | disposition home or self-care (01) | DRG 322 ==
LOC: ANHED 12:15 → ANHICU 13:01
PROVIDERS: Internal Medicine; Admitting Provider Internal Medicine; Emergency Provider Emergency Medicine; PCP Emergency Medicine; Visit Provider Internal Medicine
PROC: 4A023N7 Measurement of Cardiac Sampling and Pressure, Left Heart, Percutaneous Approach (ICD-10-PCS; CPT 93452; principal; 2023-06-18 12:15)
PROC: 027035Z Dilation of Coronary Artery, One Artery with Two Drug-eluting Intraluminal Devices, Percutaneous Approach (ICD-10-PCS; 2023-06-18 12:15)
PROC: 027035Z Dilation of Coronary Artery, One Artery with Two Drug-eluting Intraluminal Devices, Percutaneous Approach (ICD-10-PCS; 2023-06-18 12:15)
PROC: 027035Z Dilation of Coronary Artery, One Artery with Two Drug-eluting Intraluminal Devices, Percutaneous Approach (ICD-10-PCS; 2023-06-18 12:15)
DX: I21.3 ST elevation (STEMI) myocardial infarction of unspecified site (principal); I49.8 Other specified cardiac arrhythmias; I25.10 Atherosclerotic heart disease of native coronary artery without angina pectoris; I10 Essential (primary) hypertension; E78.00 Pure hypercholesterolemia, unspecified; F32.9 Major depressive disorder, single episode, unspecified; F17.210 Nicotine dependence, cigarettes, uncomplicated; Z20.822 Contact with and (suspected) exposure to COVID-19
CPT/HCPCS: 36415; 80053; 80061; 83036; 83690; 83735; 84100; 84443; 84484; 85025; 85610; 85730; 87637; 92978; 93005; 93458; 99285; A9270; C1725; C1753; C1760; C1769; C1874; C1887; C1894; C1897; C8929; C9606; G0269; J0282; J0583; J1327; J1644; J2250; J2305; J2371; J3010; J7030; J7040; Q9957

== ENCOUNTER 2023-06-28 15:23 | Outpatient (CLI) | payer OTHER, SELFPAY ==
[2023-06-28 15:49] LABS: Basophils Percent Auto 0.4 % (0.2-1.2); Eosinophils Absolute Auto 0.1 K/mm3 (0-0.3); Eosinophils Percent Auto 1.2 % (0-4.4); Hematocrit 44.8 % (42.0-52.0); Hemoglobin 14.4 g/dL (14.0-18.0); Immature Granulocyte Absolute 0.04 K/mm3 (0.00-0.031); Immature Granulocyte Percent A 0.4 % (0-0.5); Lymphocytes Absolute Auto 3.29 K/mm3 (0.9-3.2); Lymphocytes Percent Auto 29.9 % (18.3-44.2); Mean Corpuscular HGB Conc 32.1 g/dl (32-36); Mean Corpuscular Hemoglobin 30.3 pg (26-34); Mean Corpuscular Volume 94.1 fl (80-100); Mean Platelet Volume 9.2 fl (7.4-10.4); Monocytes Absolute Auto 0.7 K/mm3 (0.1-0.6); Monocytes Percent Auto 6.5 % (2.6-8.5); Neutrophils Absolute Auto 6.8 K/mm3 (1.3-6.7); Neutrophils Percent Auto 61.6 % (45.5-73.1); Platelet Count Result 333 k/mm3 (150-375); Red Blood Count 4.76 M/mm3 (4.6-6.20); Red Cell Distribution Width 11.9 % (11.5-14.5)
[2023-06-28 16:00] LABS: Alanine Aminotransferase 28 U/L (6-50); Albumin Level 4.3 g/dL (3.5-5.1); Alkaline Phosphatase 85 U/L (38-126); Anion Gap 10 mmol/L (8-16); Aspartate Amino Transferase 30 U/L (17-59); Bilirubin,Total 0.5 mg/dL (0.2-1.3); Blood Urea Nitrogen 11 mg/dL (9-20); Carbon Dioxide 25 mmol/L (22-30); Chloride 100 mmol/L (98-107); Estimated Glomerular Filt Rate > 60; Glucose 91 mg/dL (65-110); Potassium 3.9 mmol/L (3.4-5.0); Sodium 135 mmol/L (137-145)
== END 2023-06-28 15:24 | disposition home or self-care (01) ==
LOC: ANHLAB 15:25
PROVIDERS: PCP Emergency Medicine; Visit Provider Internal Medicine Cardiovascular Disease
DX: I25.118 Atherosclerotic heart disease of native coronary artery with other forms of angina pectoris (principal); Z01.810 Encounter for preprocedural cardiovascular examination
CPT/HCPCS: 36415; 80053; 85025

== ENCOUNTER 2023-11-23 09:09 | Outpatient (CLI) | payer OTHER, SELFPAY ==
[2023-11-23 09:46] LABS: Alanine Aminotransferase 35 U/L (6-50); Albumin Level 4.7 g/dL (3.5-5.1); Alkaline Phosphatase 81 U/L (38-126); Anion Gap 5 mmol/L (4-12); Aspartate Amino Transferase 33 U/L (17-59); Bilirubin,Total 0.6 mg/dL (0.2-1.3); Blood Urea Nitrogen 14 mg/dL (9-20); Calcium 9.2 mg/dL (8.4-10.2); Carbon Dioxide 29 mmol/L (22-30); Chloride 100 mmol/L (98-107); Cholesterol 153 mg/dL (0-200); Estimated Glomerular Filt Rate > 60; Glucose 115 mg/dL (65-110); HDL Direct 73 mg/dL; Potassium 4.8 mmol/L (3.4-5.0); Sodium 134 mmol/L (137-145); Triglycerides 78 mg/dL (<150)
[2023-11-23 09:51] LABS: LDL Cholesterol Direct 73 mg/dL
[2023-11-23 10:07] LABS: Vitamin D 25 Hydroxy 39.8 ng/mL
[2023-11-23 10:12] LABS: Prostate Specific Antigen 1.5 ng/mL (< OR = 4.0)
== END 2023-11-23 09:10 | disposition home or self-care (01) ==
LOC: ANHLAB 09:13
PROVIDERS: PCP Emergency Medicine; Visit Provider Emergency Medicine
DX: I10 Essential (primary) hypertension (principal); E78.5 Hyperlipidemia, unspecified; Z12.5 Encounter for screening for malignant neoplasm of prostate; E55.9 Vitamin D deficiency, unspecified
CPT/HCPCS: 36415; 80053; 80061; 82306; 84153; G0103

== ENCOUNTER 2024-05-24 09:19 | Outpatient (CLI) | payer OTHER, SELFPAY ==
[2024-05-24 10:08] LABS: Alanine Aminotransferase 38 U/L (6-50); Albumin Level 4.4 g/dL (3.5-5.1); Alkaline Phosphatase 73 U/L (38-126); Anion Gap 4 mmol/L (4-12); Aspartate Amino Transferase 37 U/L (17-59); Bilirubin,Total 0.6 mg/dL (0.2-1.3); Blood Urea Nitrogen 18 mg/dL (9-20); Calcium 8.7 mg/dL (8.4-10.2); Carbon Dioxide 25 mmol/L (22-30); Chloride 107 mmol/L (98-107); Cholesterol 132 mg/dL (0-200); Estimated Glomerular Filt Rate > 60; Glucose 99 mg/dL (65-110); HDL Direct 62 mg/dL; Potassium 4.6 mmol/L (3.4-5.0); Sodium 136 mmol/L (137-145); Triglycerides 56 mg/dL (<150)
[2024-05-24 10:20] LABS: LDL Cholesterol Direct 54 mg/dL
[2024-05-24 11:20] LABS: Vitamin D 25 Hydroxy 31.9 ng/mL
== END 2024-05-24 09:20 | disposition home or self-care (01) ==
PROVIDERS: PCP Emergency Medicine; Visit Provider Emergency Medicine
DX: E78.5 Hyperlipidemia, unspecified (principal); E55.9 Vitamin D deficiency, unspecified
CPT/HCPCS: 36415; 80053; 80061; 82306

== ENCOUNTER 2024-11-16 08:37 | Outpatient (CLI) | payer OTHER, SELFPAY ==
--- OUTSIDE RECORDS SUMMARY | 2024-11-16 08:47 | XMS_ITS | CCD ---
Author Name Interface, [id number] lity Address [place] [address] [facility] Address [address] [address] Care Team Providers Care Order Expediter Name Role Phone Alberto Gaspar Unavailable Unavailable Allergies and Adverse Reactions Reason for Visit Problems Social History
--- OUTSIDE RECORDS SUMMARY | 2024-11-16 08:48 | XMS_ITS | CCD ---
Author Name Interface, [id number] lity Address [place] [address] [facility] Address 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
--- OUTSIDE RECORDS SUMMARY | 2024-11-16 08:48 | XMS_ITS | Patient Health Record ---
Author Organization [facility] Address [address] [place] [address] Care Team Providers Care Airplane Pilot Supervisor Name Role Phone Edwin Mcdaniel Primary Care Provider [phone] Reason For Referral No Information Immunizations Vaccine Route Administration Date Status Comme nts COVID-19 Moderna 2nd IM Intramuscular 09/26/2020 Administered COVID-19 Moderna 1ST IM Intramuscular 08/29/2020 Administered EUA given. Naima ent tolerated well. Plan Of Treatment No Information Insurance Providers Payer Name Payer Address Payer Phone Subscriber Number Group Number Insured Name Patient Relationship to Insured Coverage Start Date Coverage End Date [employer] [address] [place] [phone] [id number] Suman Hinojosa Self - patient is the insured 2020
--- OUTSIDE RECORDS SUMMARY | 2024-11-16 08:48 | XMS_ITS | Continuity of Care Document ---
Author Organization [facility] Address [address] [place] [address] [address] [place] [address] Phone Care Team Providers Care Food Mixer Assembler Name Role Phone Armas OD, Cameron Unavailable Unavailable Advance Directives Directive Yes / No Effective Date File Name No Information Encounters Encounter Description Practice Location Reason(s) For Visit Diagnoses Date Provider Providers Copied on Encounter [facility], [address] [place] [address] [address], [place], [place], [id number], [place] tel:[phone] [facility] [place] No Information [id number] [phone] Armas OD Cameron. [address] , [address], [place], [address], [place]. tel:[phone] Family History Family Member Type Diagnosis Age At Onset No Information Payers Payer name Insurance type Covered alliance party ID Authoriza tion(s) [employer] Plan CI [id number] Social History Type Description Quantity Date Captured Comments Sex Male Smoking Status No Information Chief Complaint And Reason For Visit No Information Reason For Referral Reason For Referral No Information History Of Present Illness Encounter Date Complaint History Of Prese nt Illness No Information Functional Status Date Functional Assessmen t No Information Instructions Date Instruction Additional Infor mation No Information Assessments Type Assessment Date No Information Patient Care Teams Name Effective Dates (start - stop) Status Members No Information
[2024-11-16 10:20] LABS: Alanine Aminotransferase 40 U/L (6-50); Albumin Level 4.7 g/dL (3.5-5.1); Alkaline Phosphatase 74 U/L (38-126); Anion Gap 8 mmol/L (4-12); Aspartate Amino Transferase 42 U/L (17-59); Bilirubin,Total 0.8 mg/dL (0.2-1.3); Blood Urea Nitrogen 18 mg/dL (9-20); Calcium 9.7 mg/dL (8.4-10.2); Carbon Dioxide 28 mmol/L (22-30); Chloride 100 mmol/L (98-107); Cholesterol 183 mg/dL (0-200); Estimated Glomerular Filt Rate > 60; Glucose 120 mg/dL (65-110); HDL Direct 70 mg/dL; Potassium 4.8 mmol/L (3.4-5.0); Sodium 136 mmol/L (137-145); Triglycerides 100 mg/dL (<150)
[2024-11-16 10:31] LABS: LDL Cholesterol Direct 79 mg/dL
[2024-11-16 10:58] LABS: Vitamin D 25 Hydroxy 30.6 ng/mL
== END 2024-11-16 08:38 | disposition home or self-care (01) ==
LOC: ANHLAB 08:41
PROVIDERS: PCP Emergency Medicine; Visit Provider Emergency Medicine
DX: E55.9 Vitamin D deficiency, unspecified (principal); E78.5 Hyperlipidemia, unspecified
CPT/HCPCS: 36415; 80053; 80061; 82306